=== PATIENT | male | born 1955 | race African-American/Black ===

== ENCOUNTER → 2019-05-18 19:15 | Outpatient (BNVA) | payer MEDICARE, SELFPAY | PROVIDERS: Visit Provider Nurse Practitioner Family | DX: R07.9 Chest pain, unspecified (principal); R07.89 Other chest pain | CPT/HCPCS: 80053; 80061; 82550; 84484; 85025 ==

== ENCOUNTER 2020-07-04 17:08 | Emergency (ER) | payer MEDICARE, SELFPAY ==
[2020-07-04 17:37] VITALS: BP 197/96; PULSE 75; RESP 16; TEMP 36.3; O2SAT 97; BMI 26.9
--- NOTE | 2020-07-04 17:41 | CTR_ITS ---
PROCEDURE INFORMATION: Exam: CT Abdomen And Pelvis With Contrast Exam date and time: 07/04/2020 6:25 PM Age: 65 years old Clinical indication: Abdominal pain; Localized; Right lower quadrant (rlq); Patient HX: C/O rlq/groin pain; Additional info: Rlq pain TECHNIQUE: Imaging protocol: Computed tomography of the abdomen and pelvis with contrast. Radiation optimization: All CT scans at this facility use at least one of these dose optimization techniques: automated exposure control; mA and/or kV adjustment per patient size (includes targeted exams where dose is matched to clinical indication); or iterative reconstruction. Contrast material: OMNI 300; Contrast volume: 95 ml; Contrast route: INTRAVENOUS (IV); COMPARISON: No relevant prior studies available. RADIATION DOSE METRICS: Total DLP (mGy-cm): 1129.23 FINDINGS: Liver: Normal. No mass. Gallbladder and bile ducts: Normal. No calcified stones. No ductal dilation. Pancreas: Normal. No ductal dilation. Spleen: Normal. No splenomegaly. Adrenal glands: Normal. No mass. Kidneys and ureters: Bilateral renal cysts have benign features the larger of which measures 4.3 cm in the left kidney. Follow-up is not necessary. There are bilateral nonobstructing renal calculi. There is a 10 mm x 6 mm calculus in the proximal right ureter with resultant moderate right hydronephrosis/proximal hydroureter and mild associated inflammatory stranding. Stomach and bowel: There is fecal appearing content in distal small bowel loops consistent with stasis. No dilated small bowel loops are seen. There is air and stool scattered throughout the colon and in the rectal vault. Appendix: No evidence of appendicitis. Intraperitoneal space: Unremarkable. No free air. No significant fluid collection. Vasculature: Unremarkable. No abdominal aortic aneurysm. Lymph nodes: Unremarkable. No enlarged lymph nodes. Urinary bladder: Unremarkable as visualized. Reproductive: Prostate gland indents the base of the bladder consistent with median lobe enlargement. Bones/joints: Unremarkable. No acute fracture. Soft tissues: Unremarkable. CT/CT abdomen pelvis w con* [id number] IMPRESSION: 1. There is a 10 mm x 6 mm calculus in the proximal right ureter with obstructive changes as described above. 2. Prostate gland indents the base of the bladder consistent with median lobe enlargement. 3. There is fecal appearing content in distal small bowel loops consistent with stasis. COMMENTS: Consistent with the [employer] [employer]'s Incidental Findings Committee white paper (J Am Dipti Radiol 2018): Any incidental renal lesion less than 1 cm or classified as too small to characterize, or any incidental cystic renal lesion characterized as simple-appearing, is likely benign. No follow-up imaging is recommended for these lesions per consensus recommendations based on imaging criteria. Radiation Dose CTDIVOL = (mGy): DLP = 1129.23 (mGy-cm)
[2020-07-04 18:09] LABS: Basophils # 0.1 10^3/uL (0.0-0.1); Basophils % 1.2 %; Eosinophils # 0.2 10^3/uL (0.0-0.8); Eosinophils % 4.5 %; Hematocrit 40.5 % (42.0-52.0); Hemoglobin 12.4 g/dL (11.7-16.6); Lymphocytes # 1.5 10^3/uL (0.8-4.8); Lymphocytes % 34.8 %; Mean Corpuscular HGB Conc 30.6 g/dL (30.0-36.0); Mean Corpuscular Hemoglobin 28.8 pg (28.0-34.0); Mean Corpuscular Volume 94.2 fL (80-94); Mean Platelet Volume 10.8 fL (7.4-10.4); Monocytes # 0.4 10^3/uL (0.2-0.9); Neutrophils # 2.11 10^3/uL (1.8-7.7); Neutrophils % 50.3 %; Nucleated Red Blood Cells % 0 %; Platelet Count 140 10^3/cmm (130-400); Red Cell Distribution Width 12.2 % (12.1-15.1); White Blood Count 4.2 10^3/uL (4.0-10.0)
[2020-07-04 18:14] VITALS: BP 194/92; PULSE 58; RESP 16; O2SAT 99
[2020-07-04 18:22] LABS: Alanine Aminotransferase 18 U/L (0-41); Albumin Level 4.4 g/dL (3.5-5.2); Alkaline Phosphatase 49 IU/L (40-130); Anion Gap 11.4 (5-19); Aspartate Amino Transferase 31 U/L (0-40); Blood Urea Nitrogen 17 mg/dL (8-23); Calcium 9.5 mg/dL (8.5-10.5); Carbon Dioxide 28 mmol/L (22-29); Chloride 102 mmol/L (98-107); Glomerular Filtration Rate 73.3 mL/min (90-130); Glucose 90 mg/dL (65-115); Lipase 31 U/L (13-60); Osmolality Calculated 285 mOsm/kg (285-295); Potassium 4.4 mmol/L (3.5-5.1); Sodium 137 mmol/L (136-145); Total Protein 7.4 g/dL (6.6-8.7)
[2020-07-04] MEDS: morphine 4 mg/mL SDV 1 mL IVP (18:26)
[2020-07-04] MEDS: ondansetron 2 mg/ML SDV 2 mL 4 MG IVP (18:27)
[2020-07-04 18:41] LABS: Add Urine Microscopic? YES; Bilirubin Urine Neg (Negative); Blood Urine 2+ (Negative); Glucose Urine UA Norm (Normal); Ketones Urine Negative (Negative); Leukocyte Esterase Urine Trace (Negative); Nitrate Urine Negative (Negative); Protein Urine Neg (Negative); Specific Gravity, Urine 1.015 (1.005-1.030); Urine Appearance SL Hazy (CLEAR); Urine Color Yellow (Yellow); Urobilinogen Urine Norm (Negative); pH Urine 6.5 (5-7)
[2020-07-04] MEDS: iohexol 300 mg/mL 100 mL Btl IV (18:42)
[2020-07-04 18:47] LABS: Bacteria Urine TRACE /hpf; Mucus Urine 1+ /hpf; RBC Urine 15-25 /hpf (0-2)
--- NOTE | 2020-07-04 18:47 | PC.NURSE ---
pt back from CT scan by jil
[2020-07-04 18:48] LABS: Add Urine Culture? Yes
[2020-07-04] MEDS: cefTRIAXone 1,000 MG in sodium chloride 0.9% (plus) 50 ML 100 MG IV (19:18)
[2020-07-04] MEDS: ketorolac 30 mg/mL INJ IVP (19:28)
--- NOTE | 2020-07-04 20:01 | W.ED.GENADLT ---
Documented by User: Belgica Greer 07/04/20 20:20 HPI - General Adult General: Chief complaint: General Medical Stated complaint: GROIN PAIN Time Seen by Provider: 07/04/20 17:16 Source: patient Mode of arrival: ambulatory Limitations: no limitations History of Present Illness: HPI narrative: 65 yo male patient presents to ER with right sided groin pain. Pt states this does not radiate anywhere. Pt states this has been intermittent for last week. Pt states pain hit again todady and he could not tolerate it. Pt denies any back pain or abd pain. Pt denies any fever chest pain or SOB pt denies any urinary sx. pt does have hx of kidney stones back in [place] complaint: 65 yo male patient presents to ER with right sided groin pain. Associated symptoms: Deny chest pain, confusion, diaphoresis, dyspnea, headache(s), malaise, nausea, rash, palpitations, syncope or vomiting Review of Systems Const: Denies: fever(s), chills, body aches, change in appetite, change in weight, fatigue, malaise or diaphoresis Eyes: Denies: change in vision, blurry vision, blind spots, photophobia, eye discomfort, eye discharge, eye redness, floaters or seeing flashes ENMT: Denies: throat pain, uvular edema, enlarged tonsils, odynophagia, hoarseness, mouth pain, swelling of lips/tongue, oral sores, bleeding gums, dental pain, dry mouth, ear or mastoid pain, ear discharge, change in hearing, tinnitus, disequilibrium, nasal discharge, nasal congestion, post nasal drip or sinus pain Card: Denies: chest pain, palpitations, irregular heart rhythm, edema, swelling of feet/ankles, lightheadedness, syncope, pre-syncope, dyspnea on exertion, orthopnea, leg pain with exertion or acrocyanosis Resp: Denies: dyspnea, productive cough, non-productive cough, wheezing, stridor, pain on inspiration, change in phlegm color, hemoptysis or chest congestion GI: Reports: other (right sided groin pain); Denies: abdominal pain, nausea, vomiting, hematemesis, dysphagia, diarrhea, constipation, GI cramping, change in bowel habits or rectal pain : Denies: flank pain, dysuria, urinary frequency, urinary urgency, urinary hesitancy or hematuria Musc: Denies: neck pain, back pain, extremity pain, extremity swelling, joint pain, joint swelling, joint redness, joint warmth or deformity Skin/Breast: Denies: rash, pruritus, erythema, sores, new lesions, changes in skin color or dry skin Neuro: Denies: headache(s), numbness in extremities, weakness in extremities, sensory changes, lack of coordination, difficulty walking, frequent falls, dizziness, vertigo, confusion, behavioral changes, Slurred speech present, difficulty communicating thoughts or seizure-like activity Psych: Denies: anxiety, depression, suicidal ideation or homicidal ideation Endo: Denies: polyuria, polydipsia, tired all the time, cold intolerance, excessive sweating, flushing, hot flashes or heat intolerance Kane/Lymph: Denies: easy bruising, easy bleeding, petechiae, purpura, enlarged lymph nodes or tender lymph nodes All/Imm: Denies: urticaria, throat swelling, tongue swelling, facial swelling, acute wheezing or itchy eyes PFSH ED PFSH: Social History Smoking and tobacco status: never smoked Physical Exam Const: COMMON NORMALS: no acute distress, patient oriented x3, healthy appearing, alert and well nourished GENERAL APPEARANCE: cooperative, comfortable, well kempt and well developed; not ill appearing ORIENTATION/CONSCIOUSNESS: Yes awake, Yes oriented to person, Yes oriented to place and Yes oriented to time HENMT: COMMON NORMALS: normocephalic, atraumatic, hearing grossly normal bilaterally, external ears normal, EAC's normal, TM's normal bilaterally, Normal external nose present, Normal nasal mucous membranes and turbinates present and moist oral mucous membranes HEAD & SCALP: normal to inspection, normocephalic and atraumatic FACE & SINUS: normal facial exam, sinuses nontender and face symmetric NOSE: Normal external nose present, Normal nares present, Normal nasal mucous membranes and turbinates present, No nasal discharge present and Abnormal external nose present EXTERNAL EAR: Yes external ears normal and Yes mastoids normal EXTERNAL AUDITORY CANAL: EAC's normal TYMPANIC MEMBRANE: TM's normal bilaterally MOUTH: Normal oral and palatal mucosa present, lip normal, tongue normal and Normal salivary glands and ducts present THROAT: no uvular edema Eye: COMMON NORMALS: Equal, round and reactive pupils present, EOMs intact bilaterally, conjunctivae normal, no scleral icterus and no papilledema GENERAL EYE: appearance normal, both eyes and all related structures EYELID: eyelids normal CONJUNCTIVA: Yes conjunctivae normal SCLERA: sclerae normal CORNEA: Yes corneas normal PUPIL: Yes Equal, round and reactive pupils present DIRECT OPHTHALMOSCOPY: Yes no papilledema Neck/C-Spine: COMMON NORMALS: full ROM, no lymphadenopathy, supple, no meningeal signs, no JVD and Thyroid normal GENERAL: Yes normal visual inspection and Yes trachea midline THYROID: Thyroid normal CERVICAL SPINE: Yes cervical ROM normal Lymph: LYMPHATIC: no lymphadenopathy noted and no lymphedema noted Chest: COMMONS NORMALS: normal inspection of the chest and normal palpation of entire chest wall Resp: COMMON NORMALS: normal respiratory effort, No retractions, No use of accessory muscles and clear to auscultation bilaterally EFFORT & INSPECTION: Yes able to speak in complete sentences and Yes symmetric chest movement AUSCULTATION: clear to auscultation bilaterally Cardio: COMMON NORMALS: no JVD, regular rate and regular rhythm RATE: regular rate RHYTHM: regular rhythm GI: COMMON NORMALS: Normal to inspection, nondistended, normoactive bowel sounds present, Soft to palpation, non-tender, No hepatosplenomegaly present, no masses and no bruits INSPECTION: Yes normal to inspection AUSCULTATION: Yes normoactive bowel sounds PALPATION: Yes Soft to palpation and Yes No hepatosplenomegaly present PERCUSSION: normal to percussion RECTAL EXAM: Yes deferred : COMMON NORMALS: Yes no CVA tenderness BLADDER/KIDNEY EXAM: Yes no CVA tenderness Back/Pelvis: COMMON NORMALS: no CVA tenderness, thoracic and lumbar spine normal to inspection, no thoracic nor lumbar tenderness, thoraco-lumbar ROM normal and straight leg raise negative bilaterally THORACIC SPINE/UPPER BACK: Yes normal to inspection LUMBAR SPINE/LOWER BACK: Yes normal to inspection Extremity: COMMON NORMALS: normal to inspection, full ROM and capillary refill normal GENERAL: Yes normal exam except as noted Neuro: COMMON NORMALS: patient oriented x3, CN's II-XII intact bilaterally, moves all extremities, no focal motor deficits, no sensory deficits noted, deep tendon reflexes 2+ bilaterally and gait normal SENSORIUM/ORIENTATION: Yes alert, Yes oriented to person, Yes oriented to place and Yes oriented to time MENINGEAL SIGNS: Yes no meningeal signs CRANIAL NERVES: Yes CN normal except as noted SPEECH: speech normal GAIT: Yes Normal gait present SENSORY EXAM: Yes extremities MOTOR EXAM: 5/5 motor strength present throughout Psych: COMMON NORMALS: mental status grossly normal, Normal thought process present, cooperative, normal affect, speech normal, activity/motor behavior normal, denies hallucinations, denies homicidal ideation and denies suicidal ideation APPEARANCE: Yes grossly normal and Yes well kempt ATTITUDE: Yes calm ACTIVITY/MOTOR BEHAVIOR: Yes appropriate eye contact SPEECH: Yes normal speech THOUGHT PROCESS: Normal thought process present THOUGHT CONTENT: Yes Normal thought content present ATTENTION/CONCENTRATION: Yes attention grossly intact MEMORY/COGNITION: Yes memory grossly intact INSIGHT: Good insight present (Psych) JUDGEMENT: Good judgement present (Psych) Skin: COMMON NORMALS: no rashes or lesions noted, no wounds, turgor normal, no jaundice, no petechiae and no mottling GENERAL SKIN EXAM: no rashes or lesions noted and turgor normal Course Vital Signs: Vital signs: Vital Signs Temperature 97.3 F L 07/04/20 17:37 Pulse Rate 58 L 07/04/20 18:14 Respiratory Rate 16 07/04/20 18:14 Blood Pressure 194/92 07/04/20 18:14 Pulse Oximetry 99 07/04/20 18:14 MDM - General Adult MDM Narrative: Medical decision making narrative: Pt is well appearing non toxic and in no acute distress. Pt ct shows 10x6 mm stone with obstructing appearance stranding and moderate hydronephrosis. Pts pain has been controlled. Pt states he does not want to be admitted he wants to go home and follow up on out patient basis. Dr. Loyola contacted and agrees to see patient in office on sunday. Given patients UA I will treat with antibiotics. I will send patient home with short course of pain meds and have follow up on sunday. Restrict return precauitons discussed. Pt staffed with Dr. Cortez Lab Data: Labs: Lab Results 07/04/20 07/04/20 07/04/20 Range/Units 18:00 18:00 18:25 WBC 4.2 (4.0-10.0) 10^3/ uL RBC 4.30 (4.1-5.3) 10^6/u L Hgb 12.4 (11.7-16.6) g/dL Hct 40.5 L (42.0-52.0) % MCV 94.2 H (80-94) fL MCH 28.8 (28.0-34.0) pg MCHC 30.6 (30.0-36.0) g/dL RDW 12.2 (12.1-15.1) % Plt Count 140 (130-400) 10^3/c mm MPV 10.8 H (7.4-10.4) fL Neut % (Auto) 50.3 % Lymph % (Auto) 34.8 % [place] % (Auto) 9.0 % Eos % (Auto) 4.5 % Baso % (Auto) 1.2 % Neut # (Auto) 2.11 (1.8-7.7) 10^3/u L Lymph # (Auto) 1.5 (0.8-4.8) 10^3/u L [place] # (Auto) 0.4 (0.2-0.9) 10^3/u L Eos # (Auto) 0.2 (0.0-0.8) 10^3/u L Baso # (Auto) 0.1 (0.0-0.1) 10^3/u L Nucleated RBC % (a uto) 0 % Nucleated RBCs # 0.0 /100WBC Sodium 137 (136-145) mmol/L Potassium 4.4 (3.5-5.1) mmol/L Chloride 102 (98-107) mmol/L Carbon Dioxide 28 (22-29) mmol/L Anion Gap 11.4 (5-19) BUN 17 (8-23) mg/dL Creatinine 1.2 (0.7-1.2) mg/dL GFR Calculation 73.3 L (90-130) mL/min Glucose 90 (65-115) mg/dL Calculated Osmolal ity 285 (285-295) mOsm/k g Calcium 9.5 (8.5-10.5) mg/dL Total Bilirubin 1.0 (0.15-1.2) mg/dL AST 31 (0-40) U/L ALT 18 (0-41) U/L Alkaline Phosphata se 49 (40-130) IU/L Total Protein 7.4 (6.6-8.7) g/dL Albumin 4.4 (3.5-5.2) g/dL Globulin 3.0 (1.3-4.6) g/dL Lipase 31 (13-60) U/L Urine Color Yellow (Yellow) Urine Appearance Sl hazy (CLEAR) Urine pH 6.5 (5-7) Ur Specific Gravit y 1.015 (1.005-1.030) Urine Protein Neg (Negative) Urine Glucose (UA) Norm (Normal) Urine Ketones Negative (Negative) Urine Blood 2+ H (Negative) Urine Nitrate Negative (Negative) Urine Bilirubin Neg (Negative) Urine Urobilinogen Norm (Negative) mg/dL Ur Leukocyte Courtney ase Trace H (Negative) Urine RBC 15-25 H (0-2) /hpf Urine WBC 5-10 H (0-5) /hpf Ur Squamous Epith Cells None (0-5) /hpf Amorphous Sediment Not Reportable Urine Bacteria Trace (NONE) /hpf Urine Mucus 1+ /hpf Discharge Plan Discharge Patient Disposition: Home Clinical Impression: Kidney stone, Acute UTI (urinary tract infection) Condition: Stable Prescriptions: New hydrocodone-acetaminophen 5-325 mg tablet 1 tab PO Q6H PRN (Reason: pain) Qty: 20 RF: 0 cephalexin 500 mg capsule 500 mg PO Q8H 5 Days Qty: 15 RF: 0 Discharge Orders: Discharge ED (Routine); Ordered 07/04/20 Ordered By: Belgica Greer Referrals: Vanna Trujillo FNP [Primary Care Provider] - Giuseppe Yoder MD [Physician] - (Please call office for follow up sunday AM) Discharge Diet: Advance as tolerated Discharge Activity: Resume usual activity Patient Instructions: Kidney Stones (ED), Opioid Safety Activity Restrictions/Additional Instructions: Please take meds as directed Please no drive or operating heavy machinery while taking pain meds Please return to ER if: You have a fever. You have trouble passing urine. You see blood in your urine. You have severe pain. You have any questions or concerns about your condition or care. Coding Level of Care Code ED Assistant Federal Public Defender for Chg Fwd Exam Comprehensive Documented by User: Destiny Cortez MD, [facility] 07/05/20 01:49 HPI - General Adult General: Chief complaint: General Medical Stated complaint: GROIN PAIN Time Seen by Provider: 07/04/20 17:16 [facility] ED PFSH: Social History Smoking and tobacco status: never smoked Course Consultations: Consultation #1: Discussed the patient with Dr. Yoder, urologist. If we are able to get his pain under control he is okay with discharging the patient and he will see him this week in the office. He will not be able to do lithotripsy tomorrow as it is a holiday but he can plan for it on Sunday. Time: 19:21 Vital Signs: Vital signs: Vital Signs Temperature 97.3 F L 07/04/20 17:37 Pulse Rate 58 L 07/04/20 18:14 Respiratory Rate 16 07/04/20 18:14 Blood Pressure 194/92 07/04/20 18:14 Pulse Oximetry 99 07/04/20 18:14 MDM - General Adult MDM Narrative: Medical decision making narrative: Kindly evaluate the midlevel providers note for complete history and physical examination. I agree with her clinical findings. Essentially this is a 65-year-old male has been having right flank and right groin pain for about a week. He had seen a provider at urgent care and he was been scheduled for an ultrasound as they figured this was hernia. Because the pain got worse the patient came to the emergency department to be evaluated and a CT scan done showed a 10 x 6 mm obstructing right renal calculi. He also has some hydronephrosis. We were eventually able to get his pain under control and he is discharged home to follow-up with the urologist in about 2 days. He is discharged home with a prescription for hydrocodone. Medical Records: Attestation: I reviewed the patient's medical records. Lab Data: Attestation: I reviewed the patient's lab results. Labs: Lab Results 07/04/20 07/04/20 07/04/20 Range/Units 18:00 18:00 18:25 WBC 4.2 (4.0-10.0) 10^3/ uL RBC 4.30 (4.1-5.3) 10^6/u L Hgb 12.4 (11.7-16.6) g/dL Hct 40.5 L (42.0-52.0) % MCV 94.2 H (80-94) fL MCH 28.8 (28.0-34.0) pg MCHC 30.6 (30.0-36.0) g/dL RDW 12.2 (12.1-15.1) % Plt Count 140 (130-400) 10^3/c mm MPV 10.8 H (7.4-10.4) fL Neut % (Auto) 50.3 % Lymph % (Auto) 34.8 % [place] % (Auto) 9.0 % Eos % (Auto) 4.5 % Baso % (Auto) 1.2 % Neut # (Auto) 2.11 (1.8-7.7) 10^3/u L Lymph # (Auto) 1.5 (0.8-4.8) 10^3/u L [place] # (Auto) 0.4 (0.2-0.9) 10^3/u L Eos # (Auto) 0.2 (0.0-0.8) 10^3/u L Baso # (Auto) 0.1 (0.0-0.1) 10^3/u L Nucleated RBC % (a uto) 0 % Nucleated RBCs # 0.0 /100WBC Sodium 137 (136-145) mmol/L Potassium 4.4 (3.5-5.1) mmol/L Chloride 102 (98-107) mmol/L Carbon Dioxide 28 (22-29) mmol/L Anion Gap 11.4 (5-19) BUN 17 (8-23) mg/dL Creatinine 1.2 (0.7-1.2) mg/dL GFR Calculation 73.3 L (90-130) mL/min Glucose 90 (65-115) mg/dL Calculated Osmolal ity 285 (285-295) mOsm/k g Calcium 9.5 (8.5-10.5) mg/dL Total Bilirubin 1.0 (0.15-1.2) mg/dL AST 31 (0-40) U/L ALT 18 (0-41) U/L Alkaline Phosphata se 49 (40-130) IU/L Total Protein 7.4 (6.6-8.7) g/dL Albumin 4.4 (3.5-5.2) g/dL Globulin 3.0 (1.3-4.6) g/dL Lipase 31 (13-60) U/L Urine Color Yellow (Yellow) Urine Appearance Sl hazy (CLEAR) Urine pH 6.5 (5-7) Ur Specific Gravit y 1.015 (1.005-1.030) Urine Protein Neg (Negative) Urine Glucose (UA) Norm (Normal) Urine Ketones Negative (Negative) Urine Blood 2+ H (Negative) Urine Nitrate Negative (Negative) Urine Bilirubin Neg (Negative) Urine Urobilinogen Norm (Negative) mg/dL Ur Leukocyte Courtney ase Trace H (Negative) Urine RBC 15-25 H (0-2) /hpf Urine WBC 5-10 H (0-5) /hpf Ur Squamous Epith Cells None (0-5) /hpf Amorphous Sediment Not Reportable Urine Bacteria Trace (NONE) /hpf Urine Mucus 1+ /hpf Imaging Data^: CT Abd/Pel: Attestation: I personally reviewed and interpreted this imaging study as follows: Radiologist's impression: [facility] [id number] Scan ReportSigned Patient: Jose E Driver #: [id number]: [id number]#:[id number]/Sex: 65 / MADM Date: 07/04/20Loc: ERRoom/Bed:Attending Dr: Ordering Provider/Ordering MD: Belgica Greer NP Date of Service: 07/04/20 Procedure(s): CT abdomen pelvis w con* [id number] Accession Number(s): [id number] Report Number: [id number] PROCEDURE INFORMATION: Exam: CT Abdomen And Pelvis With Contrast Exam date and time: 07/04/2020 6:25 PM Age: 65 years old Clinical indication: Abdominal pain; Localized; Right lower quadrant (rlq); Patient HX: C/O rlq/groin pain; Additional info: Rlq pain TECHNIQUE: Imaging protocol: Computed tomography of the abdomen and pelvis with contrast. Radiation optimization: All CT scans at this facility use at least one of these dose optimization techniques: automated exposure control; mA and/or kV adjustment per patient size (includes targeted exams where dose is matched to clinical indication); or iterative reconstruction. Contrast material: OMNI 300; Contrast volume: 95 ml; Contrast route: INTRAVENOUS (IV); COMPARISON: No relevant prior studies available. RADIATION DOSE METRICS: Total DLP (mGy-cm): 1129.23 FINDINGS: Liver: Normal. No mass. Gallbladder and bile ducts: Normal. No calcified stones. No ductal dilation. Pancreas: Normal. No ductal dilation. Spleen: Normal. No splenomegaly. Adrenal glands: Normal. No mass. Kidneys and ureters: Bilateral renal cysts have benign features the larger of which measures 4.3 cm in the left kidney. Follow-up is not necessary. There are bilateral nonobstructing renal calculi. There is a 10 mm x 6 mm calculus in the proximal right ureter with resultant moderate right hydronephrosis/proximal hydroureter and mild associated inflammatory stranding. Stomach and bowel: There is fecal appearing content in distal small bowel loops consistent with stasis. No dilated small bowel loops are seen. There is air and stool scattered throughout the colon and in the rectal vault. Appendix: No evidence of appendicitis. Intraperitoneal space: Unremarkable. No free air. No significant fluid collection. Vasculature: Unremarkable. No abdominal aortic aneurysm. Lymph nodes: Unremarkable. No enlarged lymph nodes. Urinary bladder: Unremarkable as visualized. Reproductive: Prostate gland indents the base of the bladder consistent with median lobe enlargement. Bones/joints: Unremarkable. No acute fracture. Soft tissues: Unremarkable. CT/CT abdomen pelvis w con* [id number] IMPRESSION: 1. There is a 10 mm x 6 mm calculus in the proximal right ureter with obstructive changes as described above. 2. Prostate gland indents the base of the bladder consistent with median lobe enlargement. 3. There is fecal appearing content in distal small bowel loops consistent with stasis. COMMENTS: Consistent with the [employer] [employer]'s Incidental Findings Committee white paper (J Am Dipti Radiol 2018): Any incidental renal lesion less than 1 cm or classified as too small to characterize, or any incidental cystic renal lesion characterized as simple-appearing, is likely benign. No follow-up imaging is recommended for these lesions per consensus recommendations based on imaging criteria. Radiation Dose CTDIVOL = (mGy): DLP = 1129.23 (mGy-cm) Dictated By:Leonila Batres MDSigned By:Leonila Batres MDSigned Date/Time:07/04/201904DD/ 03 Discharge Plan Discharge Patient Disposition: Home Clinical Impression: Kidney stone, Acute UTI (urinary tract infection) Condition: Stable Prescriptions: New hydrocodone-acetaminophen 5-325 mg tablet 1 tab PO Q6H PRN (Reason: pain) Qty: 20 RF: 0 cephalexin 500 mg capsule 500 mg PO Q8H 5 Days Qty: 15 RF: 0 Discharge Orders: Discharge ED (Routine); Ordered 07/04/20 Ordered By: Belgica Greer Referrals: Vanna Trujillo FNP [Primary Care Provider] - Giuseppe Yoder MD [Physician] - (Please call office for follow up sunday) Discharge Diet: Advance as tolerated Discharge Activity: Resume usual activity Patient Instructions: Kidney Stones (ED), Opioid Safety Activity Restrictions/Additional Instructions: Please take meds as directed Please no drive or operating heavy machinery while taking pain meds Please return to ER if: You have a fever. You have trouble passing urine. You see blood in your urine. You have severe pain. You have any questions or concerns about your condition or care. Coding Level of Care Code ED Assistant Federal Public Defender for [place] Fwd Exam Comprehensive
--- NOTE | 2020-07-06 10:48 | DCPLANNER ---
account relationship manager had message to schedule a follow up appointment for patient with Dr. Yoder. account relationship manager called the office of Dr. Yoder, spoke with Sophia, gave clinic patients information. account relationship manager was told that patients information would be printed and reviewed. Clinic will call patient with appointment information.
--- NOTE | 2020-07-07 13:07 | DCPLANNER ---
Patient had a follow up appointment scheduled for 07.06.[address] Yoder - patient did attend appointment.
== END 2020-07-04 20:01 | disposition home or self-care (01) ==
PROVIDERS: Emergency Provider Registered Nurse; PCP Nurse Practitioner
DX: N39.0 Urinary tract infection, site not specified (principal); N20.0 Calculus of kidney
CPT/HCPCS: 74177; 80053; 81001; 83690; 85025; 87086; 96365; 96375; 99284; J0696; J1885; J2270; J2405; Q9967

== ENCOUNTER 2020-07-06 14:32 | Outpatient (CLI) | payer MEDICARE, SELFPAY ==
--- NOTE | 2020-07-06 14:38 | XRR_ITS ---
PROCEDURE INFORMATION: Exam: XR Abdomen Exam date and time: 07/06/2020 2:50 PM Age: 65 years old Clinical indication: Pain and condition or disease; Kidney or ureter condition; Calculus (stone) in kidney and calculus (stone) in ureter; Abdominal pain; Additional info: Ureteral stone TECHNIQUE: Imaging protocol: XR of the abdomen. Views: Frontal supine view of the abdomen. 1 View. COMPARISON: CT abdomen pelvis w con* [id number] 07/04/2020 6:39 PM FINDINGS: Gastrointestinal tract: Unremarkable. No bowel dilation. Organs: Stable right renal ureteropelvic junction calculus location. Stable left renal calyceal lithiasis. Bones/joints: No acute abnormality identified. XR/XR KUB [id number] IMPRESSION: 1. Stable right renal ureteropelvic junction calculus location. 2. Stable left renal calyceal lithiasis.
== END 2020-07-06 14:33 | disposition home or self-care (01) ==
PROVIDERS: PCP Nurse Practitioner; Visit Provider Urology
DX: N20.1 Calculus of ureter (principal); N20.0 Calculus of kidney
CPT/HCPCS: 74018

== ENCOUNTER → 2020-07-07 07:53 | Outpatient (BNVA) | payer MEDICARE, SELFPAY | PROVIDERS: PCP Nurse Practitioner; Visit Provider Urology | DX: N20.1 Calculus of ureter (principal); Z20.822 Contact with and (suspected) exposure to COVID-19 | CPT/HCPCS: 87635 ==

== ENCOUNTER 2020-07-09 13:40 | Day surgery (SDC) | payer MEDICARE, SELFPAY ==
[2020-07-08 15:28] VITALS: BMI 26.9
[2020-07-09] VITALS (7 sets, daily range): BP systolic 147–175; BP diastolic 79–88; PULSE 63–75; RESP 11–18; TEMP 36.1–36.8; O2SAT 98–100
--- NOTE | 2020-07-09 13:45 | XR_ITS ---
WS: [id number] KUB, AP view, 07/09/2020 Clinical Data: Large right proximal ureteral stone Comparison: KUB, 07/06/2020. Findings: No abnormal intraabdominal masses are seen. There is no dilatated small bowel or evidence of obstruct ion. The proximal right ureteral calculus is obscured by overlying bowel gas and the right second transver se process. There are left renal calculi unchanged. No calculi are seen in the true pelvis. XR/XR KUB 90322 Impression: 1. Probable no change in proximal right ureteral calculus. 2. No change in left renal calculi.
[2020-07-09] MEDS: sodium chloride 0.9% 1,000 ML 30 ML IV (14:00)
--- NOTE | 2020-07-09 14:36 | ANES.PREANE2 ---
Pre-Anesthetic Assessment Pre-Anesthetic Assessment: Height/Weight: Height 1.63 m Weight 71.214 kg Temp Pulse Resp BP Pulse Ox 98.2 F 65 18 175/88 98 07/09/20 14:14 07/09/20 14:14 07/09/20 14:14 07/09/20 14:14 07/09/20 14:14 Preop Diagnosis: Large right ureteral calculus with obstruction Proposed Procedure: Operation Date: 07/09/20 14:50 Proposed Procedures p Cystoscopy 34433 38887 n20.1(Not Applicable) - Giuseppe Yoder MD s right ESWL(Right) - Giuseppe Yoder MD s Ureteral Stent Placement(Not Applicable) - Giuseppe Yoder MD Was Beta Rufina taken within 24 hours: N/A Was Clonidine taken within 24 hours: N/A Last intake: Intake Last Liquid Date 07/09/20 Last Liquid Time 05:00 Last Solid Date 07/08/20 Last Solid Time 21:00 Social: Social History: No alcohol and No tobacco Exam: Pre-Anes Outpt Exam: alert, oriented x 3, clear to auscultation bilaterally and regular rate & rhythm Airway: Submandibular: WNL Cervical ROM: WNL MP: 2 Dentition: Full History/ROS: No significant history except as noted : Comments: Kidney stones Anesthetic Plan: ASA status: 2 Anesthesia: General Risk of > 500 ml blood loss (7ml/kg in children): No PFSH Anesthesia PFSH: Medical History Bilateral renal cysts History of kidney stones Right inguinal hernia Ureteral calculus, right Surgical History (Updated 07/09/20 @ 10:32 by Hiren Tracey MD) History of colonoscopy 1990 Family History Father , at 82 No problems noted. Mother , at age 86 No problems noted. Social History Smoking and tobacco status: never smoked Alcohol intake: never Marital status: Current occupational status: employed History of recent travel: No Data Anesthesia Cardiac Studies: No Data to Display
--- NOTE | 2020-07-09 14:43 | P.HPUD_ITS ---
Surgery/Procedure H&P Update DATE OF PROCEDURE: July 09, 2020 DATE H&P PERFORMED: 07/06/20 H&P UPDATE INFORMATION: I have reviewed H&P completed within last 30 days, I have examined patient prior to procedure, No changes to prior documentation and H&P is in [facility] EMR on date indicated CHANGES TO PREVIOUS DOCUMENTATION: Confirmed right proximal ureteral stone location on KUB today before procedure. Confirmed laterality with patient.. PREOP DIAGNOSIS: Large right ureteral calculus with obstruction PLANNED PROCEDURE: Operation Date: 07/09/20 14:50 Proposed Procedures p Cystoscopy 68539 60248 n20.1(Not Applicable) - Giuseppe Yoder MD s right ESWL(Right) - Giuseppe Yoder MD s Ureteral Stent Placement(Not Applicable) - Giuseppe Yoder MD
--- NOTE | 2020-07-09 14:44 | PM.OP ---
Operative Report Date of procedure: July 09, 2020 Pre-op Diagnosis: Large right ureteral calculus with obstruction Post-op Diagnosis: Same Procedure Done: 1. Cystoscopy with right ureteral stent placement 2. Extracorporeal shockwave lithotripsy, right ureteral calculus Implants: Right ureteral stent Pathology: none sent Surgeon: Beba Health And Safety Advisor: Lithotripsy Cargo Checker: Jorje Anesthesia: General Estimated blood loss: None Complications: None Findings: Stone easily identified. Stent passed without difficulty. Condition: stable Disposition: PACU Brief History: Jose E is a very pleasant 65-year-old black male recently diagnosed with a large right proximal ureteral stone after presenting to the emergency department with right lower quadrant pain. CT scan showed an obstructing large stone and I was consulted for further evaluation. His symptoms were atypical and that he had no flank component but did have right groin pain and I thought I palpated a hernia. A consult was performed with Dr. Tracey to confirm no surgical emergency from hernia perspective and that was confirmed. He is admitted now for a stent and ESWL to the large right proximal ureteral stone Procedure: After routine preoperative evaluation examination and obtaining of informed consent he was taken to the operating suite on 07/09/2020 where general anesthesia was administered without difficulty after appropriate timeout was performed, SCDs confirmed to be functioning, preoperative antibiotics administered, beta-denise protocol confirmed. Prepped and draped in the usual sterile fashion in dorsolithotomy position paying careful attention to avoiding pressure points. 21 Albanian cystoscope with 30 degree lens was introduced to the urethra meatus and advanced into the bladder to videoscopy. Bladder was systematically examined. No stones were seen. A flexible tip guidewire was then easily advanced up the RIGHT ureter bypassing the stone curling in the area of the renal pelvis and then a 7 Albanian by 26 cm double-pigtail stent was advanced over the guidewire through the cystoscope into appropriate position as confirmed via fluoroscopy and cystoscopy. The bladder was drained and the patient was then repositioned in supine position on the Dornier unit such that the stone was located at the focal point utilizing biplanar fluoroscopy. Shockwave therapy was initiated at a rate of 60 and an intensity of 1 with advancement to an intensity of 4. A several minute pause was conducted at approximately 300 shocks. The change on the stone was immediate. The stone showed initial partial fragmentation by 60 shocks. The stone migrated into the renal pelvis and was easily identified and further treated. A total of 1750 shocks were administered with real time fluoroscopy utilized for position changes as indicated. By the completion of the procedure no obvious residual fragments could be identified. He tolerated procedure well without complications and was awakened in the operating room and returned to recovery in stable condition. PLANS: 1. Anticipate discharge from outpatient surgery today 2. Strain all voids and save specimens 3. Follow-up 7 to 10 days with KUB likely cystoscopy and stent removal
[2020-07-09] MEDS: levofloxacin-dextrose 5 % 500 MG/100 ML PREMIX 100 MG IV (14:57)
--- NOTE | 2020-07-09 16:27 | ANE.PACU2 ---
Inpatient post-anesthesia follow up: Airway intact: Yes Vital signs: Temperature 97.3 F Pulse Rate 63 Respiratory Rate 18 Blood Pressure 156/83 Pulse Oximetry 98 Oxygen Delivery Me thod Room Air Oxygen Flow Rate 4 Fraction of Inspir ed Oxygen Hydration adequate: Yes Nausea and vomiting: No Pain level: 2 Mental status: Baseline
== END 2020-07-09 17:05 | disposition home or self-care (01) ==
PROVIDERS: PCP Nurse Practitioner; Visit Provider Urology
PROC: 0TJB8ZZ Inspection of Bladder, Via Natural or Artificial Opening Endoscopic (ICD-10-PCS; CPT 52000; principal; 2020-07-09 14:40)
PROC: (CPT 50590; 2020-07-09 14:40)
PROC: (CPT 50605; 2020-07-09 14:40)
DX: N20.1 Calculus of ureter (principal)
CPT/HCPCS: 50590; 52332; 74018; 96365; C2625; J1100; J1956; J2250; J2405; J2704; J2710; J3010; J3490; J7030

== ENCOUNTER 2020-07-14 14:37 | Emergency (ER) | payer MEDICARE, SELFPAY ==
[2020-07-14 14:45] VITALS: BP 208/82; PULSE 75; RESP 16; TEMP 36.7; O2SAT 97; BMI 27.1
--- NOTE | 2020-07-14 16:11 | CT_ITS ---
WS: [id number] CT scan of the abdomen and pelvis without Oral and IV contrast. Additional two-dimensional coronal an d sagittal reconstruction was performed. Clinical Data: Flank Pain Comparison: CT abdomen and pelvis, 07/04/2020. DLP: 814.[address] scans at [facility] use at least one of these dose optimization techniques: automat ed exposure control; mA and/or kV adjustment per patient size (includes targeted exams where dose is matched to clinical indication); or iterative reconstruction. Findings: The lower lungs show no nodules, masses or effusions. The liver, gallbladder, spleen, adrenal glands and pancreas are normal. The kidneys show bilateral renal calculi with bilateral cysts. There is a right ureteral stent extend ing from the right renal pelvis into the bladder. The abdominal aorta is normal in size. No appendicitis or diverticulitis is seen. The stomach, small bowel and colon show no change from bef ore. There is a large amount of fecal material in the colon. No abscess, adenopathy, ascites, mass, o bstruction or free air is present. The bladder is unremarkable. The prostate is enlarged. No inguinal hernia is seen. The bones of the lower thorax, lumbar spine, pelvis, and hips are normal. CT/CT abdomen pelvis wo con [id number] Impression: 1. Right ureteral stent in good position. 2. No change in bilateral renal calculi and cysts. 3. No acute change compared to prior CT abdomen and pelvis.
--- NOTE | 2020-07-14 16:12 | ED_ITS ---
HPI - General Adult General: Chief complaint: General Medical Stated complaint: right groin pain Time Seen by Provider: 07/14/20 16:08 History of Present Illness: HPI narrative: This patient is a 65-year-old male who presents to the emergency department complaint of right groin pain. Patient has a history of kidney stones and recently saw Dr. Yoder urology with stent placement and had lithotripsy on Sunday 5 days ago. Patient states increasing right lower quadrant abdominal pain. And hematuria. Patient states oxycodone given at home is not helping. Patient believes he has a swollen area in his right groin. Will do medical evaluation treat as needed Onset (ago): day(s) Location: abdomen Radiation: flank Severity scale (1-10): 6 Pain Consistency: constant Relieving factors: none Associated symptoms: Deny chest pain, dyspnea, headache(s), nausea, rash, palpitations or vomiting Review of Systems General: Reports: 10 or more systems reviewed and unremarkable except in HPI and below Const: Denies: fever(s), chills, body aches or fatigue Eyes: Denies: change in vision or blurry vision ENMT: Denies: throat pain, hoarseness or mouth pain Card: Denies: chest pain, palpitations, irregular heart rhythm, edema, swelling of feet/ankles or lightheadedness Resp: Denies: dyspnea, productive cough, non-productive cough, wheezing or pain on inspiration GI: Reports: abdominal pain; Denies: nausea or vomiting : Reports: flank pain; Denies: dysuria, urinary frequency, urinary urgency or urinary hesitancy Musc: Denies: neck pain, back pain, extremity pain, extremity swelling, joint pain, joint swelling, joint redness, joint warmth or limited range of motion Skin/Breast: Denies: rash, pruritus, erythema or skin tenderness Neuro: Denies: headache(s), numbness in extremities or weakness in extremities Psych: Denies: anxiety or depression PFSH ED PFSH: Medical History Bilateral renal cysts History of kidney stones Right inguinal hernia Ureteral calculus, right Surgical History History of colonoscopy 1990 Family History Father , at 82 No problems noted. Mother , at age 86 No problems noted. Social History Smoking and tobacco status: never smoked Alcohol intake: never Marital status: Current occupational status: employed History of recent travel: No Physical Exam Const: COMMON NORMALS: no acute distress, average body habitus, patient oriented x3, no limitations, healthy appearing, alert and well nourished HENMT: COMMON NORMALS: normocephalic, atraumatic, hearing grossly normal bilaterally, external ears normal, EAC's normal, TM's normal bilaterally, Normal external nose present, Normal nasal mucous membranes and turbinates present, moist oral mucous membranes, oropharynx normal, dentition normal and gingiva normal HEAD & SCALP: normocephalic and atraumatic NOSE: Normal external nose present and Normal nasal mucous membranes and turbinates present EXTERNAL EAR: Yes external ears normal EXTERNAL AUDITORY CANAL: EAC's normal TYMPANIC MEMBRANE: TM's normal bilaterally Neck/C-Spine: COMMON NORMALS: full ROM, no lymphadenopathy, supple, no meningeal signs, no JVD, Thyroid normal and No carotid bruits THYROID: Thyroid normal Chest: COMMONS NORMALS: normal inspection of the chest, normal palpation of entire chest wall, normal inspection of the breasts and normal palpation of the breasts Breast/axilla inspection: Yes normal inspection of the breasts BREAST/AXILLA PALPATION: Yes normal palpation of the breasts Resp: COMMON NORMALS: normal respiratory effort, No retractions, No use of accessory muscles, clear to auscultation bilaterally and percussion normal AUSCULTATION: clear to auscultation bilaterally PERCUSSION: percussion normal Cardio: COMMON NORMALS: no JVD, regular rate, regular rhythm, S1 normal heart sound present, S2 normal heart sound present, No gallops present (Cardio), No clicks present (Cardio), No murmurs present (Cardio), No rub (Cardio) and Peripheral pulses 2+ throughout RATE: regular rate RHYTHM: regular rhythm HEART SOUNDS: S1 normal heart sound present and S2 normal heart sound present PERIPHERAL PULSES: Peripheral pulses 2+ throughout GI: COMMON NORMALS: Normal to inspection, nondistended, normoactive bowel sounds present, Soft to palpation, non-tender, No hepatosplenomegaly present, no masses and no bruits PALPATION: Yes Soft to palpation and Yes No hepatosplenomegaly present : COMMON NORMALS: Yes no CVA tenderness BLADDER/KIDNEY EXAM: Yes no CVA tenderness Back/Pelvis: COMMON NORMALS: no CVA tenderness, thoracic and lumbar spine normal to inspection, no thoracic nor lumbar tenderness, thoraco-lumbar ROM normal and straight leg raise negative bilaterally Extremity: COMMON NORMALS: normal to inspection, full ROM, capillary refill normal, no joint enlargement, no clubbing, cyanosis or edema, no calf tenderness and no pedal edema Neuro: COMMON NORMALS: patient oriented x3 SENSORIUM/ORIENTATION: Yes alert MENINGEAL SIGNS: Yes no meningeal signs Course ED course: Patient does have renal colic. And causing pain in the right groin related to a urinary stent. urinary tract infection. Other labs appear to be intact. Patient given IV Rocephin in the emergency department will be discharged home with diclofenac and doxycycline. Patient is to continue all other medications and follow-up with urology as instructed. Patient be discharged home Vital Signs: Vital signs: Vital Signs Temperature 98.0 F 07/14/20 14:45 Pulse Rate 75 07/14/20 14:45 Respiratory Rate 16 07/14/20 14:45 Blood Pressure 208/82 07/14/20 14:45 Pulse Oximetry 97 07/14/20 14:45 MDM - General Adult MDM Narrative: Medical decision making narrative: This patient is a 65-year-old male who presents to the emergency department complaint of right groin pain. Patient has a history of kidney stones and recently saw Dr. Yoder urology with stent placement and had lithotripsy on Sunday 5 days ago. Patient states increasing right lower quadrant abdominal pain. And hematuria. Patient states oxycodone given at home is not helping. Patient believes he has a swollen area in his right groin. Patient does have renal colic. And causing pain in the right groin related to a urinary stent. urinary tract infection. Other labs appear to be intact. Patient given IV Rocephin in the emergency department will be discharged home with diclofenac and doxycycline. Patient is to continue all other medications and follow-up with urology as instructed. Patient be discharged home Lab Data: Labs: Lab Results 07/14/20 07/14/20 07/14/20 Range/Units 16:50 17:49 17:49 WBC 3.5 L (4.0-10.0) 10^3/ uL RBC 3.59 L (4.1-5.3) 10^6/u L Hgb 10.2 L (11.7-16.6) g/dL Hct 32.6 L (42.0-52.0) % MCV 90.8 (80-94) fL MCH 28.4 (28.0-34.0) pg MCHC 31.3 (30.0-36.0) g/dL RDW 11.9 L (12.1-15.1) % Plt Count 143 (130-400) 10^3/c mm MPV 10.4 (7.4-10.4) fL Neut % (Auto) 41.4 % Lymph % (Auto) 38.8 % Ripley % (Auto) 10.3 % Eos % (Auto) 7.8 % Baso % (Auto) 1.4 % Neut # (Auto) 1.44 L (1.8-7.7) 10^3/u L Lymph # (Auto) 1.4 (0.8-4.8) 10^3/u L Ripley # (Auto) 0.4 (0.2-0.9) 10^3/u L Eos # (Auto) 0.3 (0.0-0.8) 10^3/u L Baso # (Auto) 0.1 (0.0-0.1) 10^3/u L Nucleated RBC % (a uto) 0 % Nucleated RBCs # 0.0 /100WBC Potassium 4.1 (3.5-5.1) mmol/L Chloride 100 (98-107) mmol/L Carbon Dioxide 24 (22-29) mmol/L Anion Gap 13.1 (5-19) BUN 16 (8-23) mg/dL Creatinine 1.0 (0.7-1.2) mg/dL GFR Calculation 90.5 (90-130) mL/min Glucose 92 (65-115) mg/dL Lactic Acid (0.5-2.2) mmol/L Calcium 8.6 (8.5-10.5) mg/dL Total Bilirubin 0.9 (0.15-1.2) mg/dL AST 26 (0-40) U/L ALT 15 (0-41) U/L Alkaline Phosphata se 41 (40-130) IU/L Albumin 3.6 (3.5-5.2) g/dL Globulin 2.2 (1.3-4.6) g/dL Urine Color Red (Yellow) Urine Appearance Cloudy A (CLEAR) Urine pH 6.5 (5-7) Ur Specific Gravit y 1.015 (1.005-1.030) Urine Protein 3+ H (Negative) Urine Glucose (UA) Norm (Normal) Urine Ketones Negative (Negative) Urine Blood 3+ H (Negative) Urine Nitrate Negative (Negative) Urine Bilirubin Neg (Negative) Urine Urobilinogen Norm (Negative) mg/dL Ur Leukocyte Courtney ase 2+ H (Negative) Urine RBC 40-50 H (0-2) /hpf Urine WBC 10-15 H (0-5) /hpf Ur Squamous Epith Cells 0-4 H (0-5) /hpf Amorphous Sediment Not Reportable Urine Bacteria None (NONE) /hpf 07/14/20 Range/Units 17:49 WBC (4.0-10.0) 10^3/ uL RBC (4.1-5.3) 10^6/u L Hgb (11.7-16.6) g/dL Hct (42.0-52.0) % MCV (80-94) fL MCH (28.0-34.0) pg MCHC (30.0-36.0) g/dL RDW (12.1-15.1) % Plt Count (130-400) 10^3/c mm MPV (7.4-10.4) fL Neut % (Auto) % Lymph % (Auto) % Ripley % (Auto) % Eos % (Auto) % Baso % (Auto) % Neut # (Auto) (1.8-7.7) 10^3/u L Lymph # (Auto) (0.8-4.8) 10^3/u L Ripley # (Auto) (0.2-0.9) 10^3/u L Eos # (Auto) (0.0-0.8) 10^3/u L Baso # (Auto) (0.0-0.1) 10^3/u L Nucleated RBC % (a uto) % Nucleated RBCs # /100WBC Potassium (3.5-5.1) mmol/L Chloride (98-107) mmol/L Carbon Dioxide (22-29) mmol/L Anion Gap (5-19) BUN (8-23) mg/dL Creatinine (0.7-1.2) mg/dL GFR Calculation (90-130) mL/min Glucose (65-115) mg/dL Lactic Acid 0.7 (0.5-2.2) mmol/L Calcium (8.5-10.5) mg/dL Total Bilirubin (0.15-1.2) mg/dL AST (0-40) U/L ALT (0-41) U/L Alkaline Phosphata se (40-130) IU/L Albumin (3.5-5.2) g/dL Globulin (1.3-4.6) g/dL Urine Color (Yellow) Urine Appearance (CLEAR) Urine pH (5-7) Ur Specific Gravit y (1.005-1.030) Urine Protein (Negative) Urine Glucose (UA) (Normal) Urine Ketones (Negative) Urine Blood (Negative) Urine Nitrate (Negative) Urine Bilirubin (Negative) Urine Urobilinogen (Negative) mg/dL Ur Leukocyte Courtney ase (Negative) Urine RBC (0-2) /hpf Urine WBC (0-5) /hpf Ur Squamous Epith Cells (0-5) /hpf Amorphous Sediment Urine Bacteria (NONE) /hpf Imaging Data^: CT Abd/Pel: Attestation: I personally reviewed and interpreted this imaging study as follows: Radiologist's impression: Impression: 1. Right ureteral stent in good position. 2. No change in bilateral renal calculi and cysts. 3. No acute change compared to prior CT abdomen and pelvis. Discharge Plan Discharge Patient Disposition: Home Clinical Impression: Right inguinal pain, Disorder of urinary stent insertion, Acute UTI Condition: Stable Prescriptions: New doxycycline hyclate 100 mg capsule 100 mg PO BID 7 Days Qty: 14 RF: 0 diclofenac sodium 75 mg tablet,delayed release (DR/EC) 75 mg PO BID PRN (Reason: pain) Qty: 20 RF: 0 No Action oxycodone-acetaminophen [Percocet] 5-325 mg tablet 1 tab PO Q6H PRN (Reason: pain) 5 Days Qty: 20 RF: 0 Discharge Orders: Discharge ED (Routine); Ordered 07/14/20 Ordered By: Eliot Lowery Referrals: Vanna Trujillo FNP [Primary Care Provider] - Discharge Diet: Advance as tolerated Discharge Activity: Resume usual activity Patient Instructions: Opioid Safety Activity Restrictions/Additional Instructions: Patient given IV Rocephin in the emergency department will be discharged home with diclofenac and doxycycline. Patient is to continue all other medications and follow-up with urology as instructed. Patient be discharged home Coding Level of Care Code ED Director Of Extension Work for Chg Fwd Exam Comprehensive
[2020-07-14] MEDS: ondansetron 2 mg/ML SDV 2 mL 4 MG IVP (16:56)
[2020-07-14] MEDS: ketorolac 30 mg/mL INJ 15 MG IVP (16:56)
[2020-07-14] MEDS: sodium chloride 0.9% 500 ML IV (16:57)
[2020-07-14 17:08] LABS: Specific Gravity, Urine 1.015 (1.005-1.030); Urine Appearance Cloudy (CLEAR); Urine Color Red (Yellow); pH Urine 6.5 (5-7)
[2020-07-14 17:09] LABS: Add Urine Microscopic? YES; Bilirubin Urine Neg (Negative); Blood Urine 3+ (Negative); Glucose Urine UA Norm (Normal); Ketones Urine Negative (Negative); Leukocyte Esterase Urine 2+ (Negative); Nitrate Urine Negative (Negative); Protein Urine 3+ (Negative); Urobilinogen Urine Norm (Negative)
[2020-07-14 17:11] LABS: RBC Urine 40-50 /hpf (0-2); Squamous Epithelial Cell Urine 0-4 /hpf (0-5)
[2020-07-14 17:12] LABS: Add Urine Culture? Yes
[2020-07-14 18:01] LABS: Basophils # 0.1 10^3/uL (0.0-0.1); Basophils % 1.4 %; Eosinophils # 0.3 10^3/uL (0.0-0.8); Eosinophils % 7.8 %; Hematocrit 32.6 % (42.0-52.0); Hemoglobin 10.2 g/dL (11.7-16.6); Lymphocytes # 1.4 10^3/uL (0.8-4.8); Lymphocytes % 38.8 %; Mean Corpuscular HGB Conc 31.3 g/dL (30.0-36.0); Mean Corpuscular Hemoglobin 28.4 pg (28.0-34.0); Mean Corpuscular Volume 90.8 fL (80-94); Mean Platelet Volume 10.4 fL (7.4-10.4); Monocytes # 0.4 10^3/uL (0.2-0.9); Monocytes % 10.3 %; Neutrophils # 1.44 10^3/uL (1.8-7.7); Neutrophils % 41.4 %; Nucleated Red Blood Cells % 0 %; Platelet Count 143 10^3/cmm (130-400); Red Blood Count 3.59 10^6/uL (4.1-5.3); Red Cell Distribution Width 11.9 % (12.1-15.1); White Blood Count 3.5 10^3/uL (4.0-10.0)
[2020-07-14 18:20] LABS: Alanine Aminotransferase 15 U/L (0-41); Albumin Level 3.6 g/dL (3.5-5.2); Alkaline Phosphatase 41 IU/L (40-130); Anion Gap 13.1 (5-19); Aspartate Amino Transferase 26 U/L (0-40); Blood Urea Nitrogen 16 mg/dL (8-23); Calcium 8.6 mg/dL (8.5-10.5); Carbon Dioxide 24 mmol/L (22-29); Chloride 100 mmol/L (98-107); Globulin 2.2 g/dL (1.3-4.6); Glomerular Filtration Rate 90.5 mL/min (90-130); Glucose 92 mg/dL (65-115); Osmolality Calculated 277 mOsm/kg (285-295); Potassium 4.1 mmol/L (3.5-5.1); Sodium 133 mmol/L (136-145); Total Bilirubin 0.9 mg/dL (0.15-1.2); Total Protein 5.8 g/dL (6.6-8.7)
[2020-07-14 18:21] LABS: Lactic Sepsis W/Reflex 0.7 mmol/L (0.5-2.2)
[2020-07-14] MEDS: cefTRIAXone 1,000 MG in sodium chloride 0.9% (plus) 50 ML 100 MG IV (19:01)
[2020-07-14 20:34] VITALS: BP 144/78; PULSE 74; RESP 18; O2SAT 97
== END 2020-07-14 20:35 | disposition home or self-care (01) ==
PROVIDERS: Physician Assistant; Emergency Provider Emergency Medicine; PCP Nurse Practitioner
DX: R10.31 Right lower quadrant pain (principal); N39.0 Urinary tract infection, site not specified; T83.9XXA Unspecified complication of genitourinary prosthetic device, implant and graft, initial encounter
CPT/HCPCS: 36415; 74176; 80053; 81001; 83605; 85025; 87086; 96365; 96375; 99283; J0696; J1885; J2405; J7040

== ENCOUNTER 2020-07-15 10:55 | Outpatient (CLI) | payer MEDICARE, SELFPAY ==
--- NOTE | 2020-07-15 11:02 | XR_ITS ---
WS: [id number] KUB, AP view, 07/15/2020 Clinical Data: stone Comparison: KUB, 07/09/2020. Findings: No abnormal intraabdominal masses are seen. There is no dilatated small bowel or evidence of obstruct ion. There is a right ureteral stent in good position. The right kidney is obscured by fecal material and colon gas. There are 2 calcifications overlying the left kidney unchanged. XR/XR KUB [id number] Impression: 1. Satisfactory position of right ureteral stent. 2. No change in left renal calcifications.
== END 2020-07-15 10:56 | disposition home or self-care (01) ==
PROVIDERS: PCP Nurse Practitioner; Visit Provider Urology
DX: N20.1 Calculus of ureter (principal); Z96.0 Presence of urogenital implants
CPT/HCPCS: 74018

== ENCOUNTER → 2020-07-22 14:13 | Outpatient (BNVA) | payer MEDICARE, SELFPAY | PROVIDERS: PCP Nurse Practitioner; Visit Provider Surgery | DX: K40.90 Unilateral inguinal hernia, without obstruction or gangrene, not specified as recurrent (principal); Z20.822 Contact with and (suspected) exposure to COVID-19; R10.31 Right lower quadrant pain | CPT/HCPCS: 87635 ==

== ENCOUNTER 2020-07-28 09:15 | Day surgery (SDC) | payer MEDICARE, SELFPAY ==
[2020-07-27 15:19] VITALS: BMI 26.9
[2020-07-28] VITALS (9 sets, daily range): BP systolic 157–190; BP diastolic 79–97; PULSE 59–81; RESP 12–20; TEMP 36.5–36.8; O2SAT 97–100
--- NOTE | 2020-07-28 08:22 | W.PM.OPSUD ---
Surgery/Procedure H&P Update DATE OF PROCEDURE: July 28, 2020 DATE H&P PERFORMED: 07/20/20 H&P UPDATE INFORMATION: I have reviewed H&P completed within last 30 days, I have examined patient prior to procedure and No changes to prior documentation PREOP DIAGNOSIS: Large right ureteral calculus with obstruction PLANNED PROCEDURE: Operation Date: 07/28/20 10:40 Proposed Procedures p lap possible open inguinal hernia repair 35069 k40.90(Not Applicable) - Hiren Tracey MD
[2020-07-28] MEDS: sodium chloride 0.9% 1,000 ML 30 ML IV (09:44)
--- NOTE | 2020-07-28 09:44 | ANES.PREANE2 ---
Pre-Anesthetic Assessment Pre-Anesthetic Assessment: Height/Weight: Height 1.63 m Weight 71.214 kg Temp Pulse Resp BP Pulse Ox 97.9 F 78 18 167/86 99 07/28/20 09:25 07/28/20 09:25 07/28/20 09:25 07/28/20 09:25 07/28/20 09:25 Preop Diagnosis: Right inguinal hernia Proposed Procedure: Operation Date: 07/28/20 10:40 Proposed Procedures p lap possible open inguinal hernia repair 87241 k40.90(Not Applicable) - Hiren Tracey MD Familial anesthetic complications: None Was Beta Rufina taken within 24 hours: N/A Was Clonidine taken within 24 hours: N/A Last intake: Intake Last Liquid Date 07/27/20 Last Liquid Time 14:00 Last Solid Date 07/27/20 Last Solid Time 14:00 Social: Social History: No alcohol and No tobacco Exam: Pre-Anes Outpt Exam: alert, oriented x 3, clear to auscultation bilaterally and regular rate & rhythm Airway: Cervical ROM: WNL MP: 2 Dentition: Full Anesthetic Plan: ASA status: 1 Anesthesia: General Risk of > 500 ml blood loss (7ml/kg in children): No PFSH Anesthesia PFSH: Medical History Bilateral renal cysts History of kidney stones Right inguinal hernia Ureteral calculus, right Surgical History History of colonoscopy 1989 Family History Father , at 82 No problems noted. Mother , at age 86 No problems noted. Social History Smoking and tobacco status: never smoked Alcohol intake: never Marital status: Current occupational status: employed History of recent travel: No Data Anesthesia Cardiac Studies: No Data to Display
[2020-07-28] MEDS: HYDROcodone-acetaminophen 5-325 mg Tablet 1 TAB PO (12:20)
--- NOTE | 2020-07-28 15:47 | ANE.PACU2 ---
Inpatient post-anesthesia follow up: Airway intact: Yes Vital signs: Temperature 97.9 F Pulse Rate 59 Respiratory Rate 18 Blood Pressure 157/97 Pulse Oximetry 100 Oxygen Delivery Me thod Room Air Oxygen Flow Rate 6 Fraction of Inspir ed Oxygen Hydration adequate: Yes Nausea and vomiting: No Pain level: 2 Mental status: Baseline
--- NOTE | 2020-07-28 16:41 | PM.OP ---
Operative Report Date of procedure: July 28, 2020 Pre-op Diagnosis: Right inguinal hernia Post-op Diagnosis: Reducible indirect right inguinal hernia Procedure Done: Laparoscopic total extraperitoneal repair of right indirect inguinal hernia with SurgiMax 3D mesh measuring 16 x 10 cm Pathology: none sent Surgeon: Hiren Tracey Anesthesia: General Condition: stable Disposition: PACU Procedure: The patient was taken to the operating room. After IV antibiotic was administered, the abdomen was prepped and draped in a sterile manner. Using a 15 blade, a 1.0 cm transverse incision was made infraumbilically on the () side. Subcutaneous tissue was divided using electrocautery and the anterior rectus sheath divided using an 11 blade. The rectus muscle was retracted laterally and the extraperitoneal space identified. A 11 mm port was placed and 12 mm of pneumoperitoneum was created. A 10 mm 30? scope was introduced and the retrorectus space was opened using the camera up to the pubic symphysis and 5 mm ports were placed in the midline, one 2-fingerbreadths above the pubic symphysis and the other midway between these two ports under direct visualization. Blunt dissection was carried out to open up the tissue in the midline and to the pubic symphysis, which was identified. The dissection was then carried laterally where the iliopubic tract was identified. There was no femoral, obturator or direct hernia noted. The inferior epigastric artery was identified and dissection was carried posterior to it and laterally, the space was opened up to the level of the umbilicus superior to the anterior superior iliac spine. I then proceeded to dissect out the spermatic cord and the indirect hernial sac was reduced . 16 x 10cm Surgimax 3D mesh was rolled and introduced through the 10 mm port and then rolled laterally and apposed well against the abdominal wall to cover the myopectineal orifice completely. 10 Cc of 0.5% Marcaine was infiltrated into the preperitoneal space. The extraperitoneal space was desufflated under direct visualization to ensure no slippage of hernial sac under the mesh. All ports were removed, the anterior rectus fascia at the infraumbilical port closed using figure of eight 0 Vicryl sutures, subcutaneous tissue approximated using 3-0 Vicryl sutures and skin at all three port sites were closed using running subcuticular 4-0 Monocryl sutures and Dermabond. 10 mL of 0.5% Marcaine was infiltrated at the port sites. The patient was stable throughout the procedure.
== END 2020-07-28 13:28 | disposition home or self-care (01) ==
PROVIDERS: PCP Nurse Practitioner; Visit Provider Surgery
PROC: (CPT 49650; principal; 2020-07-28 10:40)
DX: K40.90 Unilateral inguinal hernia, without obstruction or gangrene, not specified as recurrent (principal)
CPT/HCPCS: 49650; 96365; C1781; J0690; J1100; J2250; J2405; J2704; J2710; J3010; J3490; J7030

== ENCOUNTER 2020-08-26 09:50 | Outpatient (CLI) | payer MEDICARE, SELFPAY ==
--- NOTE | 2020-08-26 09:15 | XR_ITS ---
WS: [id number] KUB, AP view, 08/26/2020 Clinical Data: URETERAL STONE Comparison: KUB, 07/15/2020. Findings: No abnormal intraabdominal masses are seen. There is no dilatated small bowel or evidence of obstruct ion. The left renal calculi are noted. The right kidney is obscured by overlying fecal material and gas. T he right ureteral stent has been removed. XR/XR KUB [id number] Impression: 1. Removal of right ureteral stent. 2. Left renal calculi.
== END 2020-08-26 09:51 | disposition home or self-care (01) ==
LOC: RAD 09:54
PROVIDERS: PCP Nurse Practitioner; Visit Provider Urology
DX: Z46.6 Encounter for fitting and adjustment of urinary device (principal); N20.1 Calculus of ureter; N20.0 Calculus of kidney
CPT/HCPCS: 74018; 81003

== ENCOUNTER 2021-12-20 15:57 | Outpatient (CLI) | payer MEDICARE, SELFPAY ==
--- NOTE | 2021-12-20 16:16 | XR_ITS ---
WS: [id number] Exam: XR KUB [id number] Date/Time of Exam: 12/20/2021 4:16 PM Reason For Exam: URETERAL CALCULUS, RIGHT Calcifications superimpose both kidneys apparently representing known renal stones. No bowel obstruct ion or free air. No sign of organ enlargement. Regional bony structures are unremarkable. Slight levo scoliosis of the L-spine. XR/XR KUB [id number] IMPRESSION: 1. No acute abdominal process. 2. Calcification superimpose both kidneys and apparently represent known renal stones.
[2021-12-20 17:56] LABS: PSA Screen - Urology 1.13 ng/mL (0-4)
== END 2021-12-20 15:58 | disposition home or self-care (01) ==
PROVIDERS: PCP Nurse Practitioner; Visit Provider Urology
DX: Z12.5 Encounter for screening for malignant neoplasm of prostate (principal); N52.9 Male erectile dysfunction, unspecified; N20.2 Calculus of kidney with calculus of ureter
CPT/HCPCS: 74018; 81003; 99214; G0103

== ENCOUNTER → 2023-04-22 18:16 | Outpatient (BNVA) | payer MEDICARE, SELFPAY | PROVIDERS: PCP Nurse Practitioner; Visit Provider Emergency Medicine | DX: R39.9 Unspecified symptoms and signs involving the genitourinary system (principal) | CPT/HCPCS: 81000; 87086 ==

== ENCOUNTER → 2023-04-25 09:51 | Outpatient (BNVA) | payer MEDICARE, SELFPAY | PROVIDERS: PCP Nurse Practitioner; Visit Provider Family Medicine | DX: R03.0 Elevated blood-pressure reading, without diagnosis of hypertension (principal); E66.3 Overweight; N40.0 Benign prostatic hyperplasia without lower urinary tract symptoms; Z12.5 Encounter for screening for malignant neoplasm of prostate; N52.9 Male erectile dysfunction, unspecified | CPT/HCPCS: 80053; 80061; 84153; 85025 ==